=== PATIENT | female | born 1930 | race Caucasian/White ===

== ENCOUNTER 2017-04-05 12:10 | Observation (INO) ==
[2017-04-05] MEDS ORDERED: MORPHINE 2 MG/1 ML SYRINGE ONE (13:52)
[2017-04-05] MEDS ORDERED: ONDANSETRON 4 MG/2 ML VIAL ONE (13:52)
[2017-04-05] MEDS ORDERED: DEXAMETHASONE 10 MG/1 ML VIAL ONE (13:52)
[2017-04-05] MEDS ORDERED: KETOROLAC 30 MG/1 ML VIAL ONE (13:52)
[2017-04-05] MEDS ORDERED: SODIUM CHLORIDE 0.9% 500 ML IV STA (13:56)
[2017-04-05] MEDS ORDERED: KETOROLAC 30 MG/1 ML VIAL IV STA (14:01)
[2017-04-05] MEDS ORDERED: ONDANSETRON 4 MG/2 ML VIAL IV STA (14:01)
[2017-04-05] MEDS ORDERED: DEXAMETHASONE 4 MG/1 ML VIAL IM STA (14:01)
[2017-04-05] MEDS ORDERED: MORPHINE 2 MG/1 ML SYRINGE IV STA (14:01)
[2017-04-05 15:07] LABS: Apearance,Urine Slightly Hazy (Clear); Bacteria,Urine Occasional /HPF (Few); Basophils % 0.2 % (0.0-0.8); Bilirubin,Urine Negative (Negative); Blood, Urine Negative (Negative); Eosinophils # 0.1 10*3/uL (0.0-0.87); Glucose,Urine (UA) Negative (Negative); Hematocrit 41.3 VOL% (35.7-47.0); Hemoglobin 13.8 GM/DL (12.0-16.0); Immature Granulocytes % 0.5 %; Immature Granulocytes Absolute 0.03 #; Ketones,Urine Negative (Negative); Lymphocytes # 1.9 10*3/uL (1.4-4.0); Mean Corpuscular HGB Conc 33.4 GM/DL (32-36); Mean Corpuscular Hemoglobin 31 PG (27-34); Mean Corpuscular Volume 92.8 FL (87-102); Monocytes # 0.5 10*3/uL (0.11-0.8); Monocytes % 8.2 % (1.7-12.7); Mucus,Urine Occasional /LPF (Occasional); Neutrophils # 3.7 10*3/uL (1.4-7.4); Neutrophils % 59.1 % (38.7-73.9); Nitrite,Urine Negative (Negative); Platelet Count 203 T/CUMM (130-400); Protein,Urine Negative; RBC,Urine 3 /HPF (0-4); Red Blood Count 4.45 MC/CUMM (3.8-5.5); Squamous Epithelial Cell,Urine Occasional /HPF (0-10); Urine Color Yellow (Yellow); Urine Specific Gravity 1.006 (1.001-1.035); Urine Urobilinogen < 2.0 EU/DL (0.2-1.0); WBC,Urine 3 /HPF (0-6); White Blood Count 6.2 T/CUMM (4-12)
[2017-04-05] MEDS ORDERED: HYDROmorphone 2 MG/1 ML VIAL ONE (15:32)
[2017-04-05 15:37] LABS: Alanine Aminotransferase 18 U/L (13-56); Albumin 3.5 G/DL (3.4-5.0); Alkaline Phosphatase 126 U/L (45-117); Aspartate Amino Transferase 15 U/L (0-37); Blood Urea Nitrogen 23 MG/DL (7-18); Calcium 8.4 MG/DL (8.5-10.1); Glucose 95 MG/DL (74-106); Potassium 4.1 MMOL/L (3.5-5.1); Sodium 143 MMOL/L (136-145); Total Protein 6.3 G/DL (6.4-8.3)
[2017-04-05] MEDS ORDERED: HYDROmorphone 2 MG/1 ML VIAL IV STA (15:38)
[2017-04-05 16:18] LABS: Sedimentation Rate-Westergren 8 MM/HR (0-30)
[2017-04-05] MEDS ORDERED: MORPHINE 2 MG/1 ML SYRINGE IV PRN (19:18)
[2017-04-05] MEDS ORDERED: ONDANSETRON 4 MG/2 ML VIAL IV PRN (19:18)
[2017-04-05] MEDS ORDERED: SODIUM CHLORIDE 0.9% 1,000 ML IV SCH (19:18)
[2017-04-05] MEDS ORDERED: ACETAMINOPHEN 325 MG TABLET PO PRN (19:18)
[2017-04-05] MEDS: ENOXAPARIN 40 MG/0.4 ML SYRINGE SUBCUT SCH (20:09)
[2017-04-05] MEDS: ACYCLOVIR INJ 1,000 MG in SODIUM CHLORIDE 0.9% 250 ML IV SCH (20:21)
[2017-04-05] MEDS: ROSUVASTATIN 10 MG TABLET PO SCH (23:20)
[2017-04-05] MEDS: SULFAMETHOX/TRIMETHOPRIM 800-160 MG TABLET PO SCH (23:20)
[2017-04-05] MEDS: GABAPENTIN 300 MG CAPSULE PO SCH (23:20)
[2017-04-05] MEDS: DOCUSATE SODIUM 100 MG CAPSULE PO SCH (23:20)
[2017-04-06] MEDS: ACYCLOVIR INJ 1,000 MG in SODIUM CHLORIDE 0.9% 250 ML IV SCH ×3 (04:12→18:36)
[2017-04-06 06:43] LABS: Hematocrit 37.7 VOL% (35.7-47.0); Hemoglobin 12.5 GM/DL (12.0-16.0); Immature Granulocytes % 0.5 %; Immature Granulocytes Absolute 0.04 #; Lymphocytes # 1.1 10*3/uL (1.4-4.0); Lymphocytes % 13.2 % (21.3-54.2); Mean Corpuscular HGB Conc 33.2 GM/DL (32-36); Mean Corpuscular Hemoglobin 31 PG (27-34); Mean Corpuscular Volume 93.8 FL (87-102); Mean Platelet Volume 9.4 FL (9.6-12.0); Monocytes # 0.3 10*3/uL (0.11-0.8); Monocytes % 3.6 % (1.7-12.7); Neutrophils # 6.7 10*3/uL (1.4-7.4); Neutrophils % 82.7 % (38.7-73.9); Platelet Count 210 T/CUMM (130-400); Red Blood Count 4.02 MC/CUMM (3.8-5.5); Red Cell Distribution Width 13.2 % (9.3-17.3); White Blood Count 8.1 T/CUMM (4-12)
[2017-04-06 07:17] LABS: Albumin 3.2 G/DL (3.4-5.0); Bilirubin,Total 0.7 MG/DL (0.2-1.0); Calcium 8.6 MG/DL (8.5-10.1); Magnesium 2.3 MG/DL (1.8-2.4); Osmolality,Calculated 291.1 MOS/KG (273-304); Potassium 4.9 MMOL/L (3.5-5.1); Total Protein 5.5 G/DL (6.4-8.3)
[2017-04-06 08:25] LABS: Apearance,Urine Slightly Hazy (Clear); Bacteria,Urine Occasional /HPF (Few); Bilirubin,Urine Negative (Negative); Blood, Urine Negative (Negative); Glucose,Urine (UA) Negative (Negative); Hyaline Casts,Urine 2 /LPF (0-3); Ketones,Urine Negative (Negative); Mucus,Urine Occasional /LPF (Occasional); Nitrite,Urine Negative (Negative); Protein,Urine Negative; RBC,Urine 5 /HPF (0-4); Squamous Epithelial Cell,Urine Occasional /HPF (0-10); Urine Color Yellow (Yellow); Urine Specific Gravity 1.014 (1.001-1.035); Urine Urobilinogen < 2.0 EU/DL (0.2-1.0); WBC,Urine 2 /HPF (0-6)
[2017-04-06] MEDS: DOCUSATE SODIUM 100 MG CAPSULE PO SCH ×2 (08:57→23:04)
[2017-04-06] MEDS: SULFAMETHOX/TRIMETHOPRIM 800-160 MG TABLET PO SCH ×2 (08:57→23:04)
[2017-04-06] MEDS: PANTOPRAZOLE 40 MG TABLET PO SCH (08:58)
[2017-04-06] MEDS: amLODIPine 5 MG TABLET PO SCH (08:58)
[2017-04-06] MEDS: GABAPENTIN 300 MG CAPSULE PO SCH ×3 (08:58→23:04)
[2017-04-06] MEDS: CYANOCOBALAMIN 500 MCG TABLET PO SCH (08:58)
[2017-04-06] MEDS: CLOPIDOGREL 75 MG TABLET PO SCH (08:58)
[2017-04-06] MEDS: MULTIVITAMIN (CENTRUM) TABLET PO SCH (08:59)
[2017-04-06] MEDS ORDERED: CALAMINE LOTION 180 ML BOTTLE TOP PRN (10:41)
[2017-04-06] MEDS: ENOXAPARIN 40 MG/0.4 ML SYRINGE SUBCUT SCH ×2 (18:11→18:37)
[2017-04-06] MEDS: ROSUVASTATIN 10 MG TABLET PO SCH (23:04)
[2017-04-07] MEDS: ACYCLOVIR INJ 1,000 MG in SODIUM CHLORIDE 0.9% 250 ML IV SCH ×2 (03:04→12:08)
[2017-04-07 06:18] LABS: Basophils % 0.2 % (0.0-0.8); Eosinophils # 0.1 10*3/uL (0.0-0.87); Hematocrit 34.2 VOL% (35.7-47.0); Hemoglobin 11.3 GM/DL (12.0-16.0); Immature Granulocytes % 0.4 %; Immature Granulocytes Absolute 0.03 #; Lymphocytes # 2.4 10*3/uL (1.4-4.0); Lymphocytes % 29.5 % (21.3-54.2); Mean Corpuscular Hemoglobin 31 PG (27-34); Mean Corpuscular Volume 93.4 FL (87-102); Mean Platelet Volume 9.4 FL (9.6-12.0); Monocytes # 0.6 10*3/uL (0.11-0.8); Monocytes % 7.7 % (1.7-12.7); Neutrophils % 61.2 % (38.7-73.9); Platelet Count 166 T/CUMM (130-400); Red Blood Count 3.66 MC/CUMM (3.8-5.5); Red Cell Distribution Width 13.5 % (9.3-17.3); White Blood Count 8.1 T/CUMM (4-12)
[2017-04-07 06:39] LABS: Osmolality,Calculated 288.3 MOS/KG (273-304); Potassium 4.4 MMOL/L (3.5-5.1)
[2017-04-07] MEDS ORDERED: LIDOCAINE 5% PATCH TRANSDERM SCH (09:00)
[2017-04-07] MEDS: CLOPIDOGREL 75 MG TABLET PO SCH (09:33)
[2017-04-07] MEDS: GABAPENTIN 300 MG CAPSULE PO SCH (09:33)
[2017-04-07] MEDS: MULTIVITAMIN (CENTRUM) TABLET PO SCH (09:33)
[2017-04-07] MEDS: SULFAMETHOX/TRIMETHOPRIM 800-160 MG TABLET PO SCH (09:33)
[2017-04-07] MEDS: DOCUSATE SODIUM 100 MG CAPSULE PO SCH (09:33)
[2017-04-07] MEDS: CYANOCOBALAMIN 500 MCG TABLET PO SCH (09:34)
[2017-04-07] MEDS: PANTOPRAZOLE 40 MG TABLET PO SCH (09:34)
[2017-04-07] MEDS: amLODIPine 5 MG TABLET PO SCH (09:34)
[2017-04-07 14:18] VITALS: BP 135/61
== END 2017-04-07 15:50 | disposition home or self-care (01) ==
LOC: EDUNIT# → N.EDINP 12:10 → N.ED 12:10 → N.EDINP 17:43 → N.5E 19:17
PROVIDERS: ADMIT Family Medicine; ATTEND Family Medicine

== ENCOUNTER 2017-06-22 16:53 | Inpatient (IN) ==
[2017-06-22] MEDS ORDERED: ONDANSETRON 4 MG/2 ML VIAL IV STA (17:27)
[2017-06-22] MEDS ORDERED: MORPHINE 2 MG/1 ML SYRINGE IV STA (17:44)
[2017-06-22] MEDS ORDERED: MORPHINE 10 MG/1 ML VIAL ONE (17:46)
[2017-06-22] MEDS ORDERED: ONDANSETRON 4 MG/2 ML VIAL ONE (17:46)
[2017-06-22 18:49] LABS: Basophils % 0.3 % (0.0-0.8); Eosinophils % 0.2 % (0.00-10.9); Hematocrit 39.5 VOL% (35.7-47.0); Hemoglobin 13.4 GM/DL (12.0-16.0); Immature Granulocytes % 0.8 %; Immature Granulocytes Absolute 0.05 #; Lymphocytes # 1.2 10*3/uL (1.4-4.0); Lymphocytes % 19.5 % (21.3-54.2); Mean Corpuscular HGB Conc 33.9 GM/DL (32-36); Mean Corpuscular Hemoglobin 33 PG (27-34); Mean Corpuscular Volume 96.6 FL (87-102); Mean Platelet Volume 9.2 FL (9.6-12.0); Monocytes # 0.3 10*3/uL (0.11-0.8); Monocytes % 5.5 % (1.7-12.7); Neutrophils # 4.6 10*3/uL (1.4-7.4); Neutrophils % 73.7 % (38.7-73.9); Platelet Count 185 T/CUMM (130-400); Red Blood Count 4.09 MC/CUMM (3.8-5.5); Red Cell Distribution Width 15.8 % (9.3-17.3); White Blood Count 6.2 T/CUMM (4-12)
[2017-06-22 18:51] LABS: Calcium 8.9 MG/DL (8.5-10.1); Osmolality,Calculated 276.8 MOS/KG (273-304); Potassium 3.8 MMOL/L (3.5-5.1)
[2017-06-22 18:55] LABS: PT Patient Result 10.6 SECS
[2017-06-22] MEDS ORDERED: MAGNESIUM HYDROXIDE SUSP 30 ML UDCUP PO PRN (19:15)
[2017-06-22] MEDS: MORPHINE 10 MG/1 ML VIAL IV PRN (19:32)
[2017-06-22] MEDS: ONDANSETRON 4 MG/2 ML VIAL IV PRN (23:13)
[2017-06-23] MEDS: MORPHINE 10 MG/1 ML VIAL IV PRN ×3 (04:16→11:40)
[2017-06-23] MEDS: ONDANSETRON 4 MG/2 ML VIAL IV PRN ×3 (04:19→16:01)
[2017-06-23] MEDS ORDERED: TRANEXAMIC ACID 1,000 MG/10 ML VIAL IV ONE (08:28)
[2017-06-23] MEDS ORDERED: ceFAZolin 1,000 MG VIAL ONE (08:58)
[2017-06-23] MEDS ORDERED: amLODIPine 5 MG TABLET PO SCH (09:00)
[2017-06-23] MEDS ORDERED: ceFAZolin 1,000 MG in SYRINGE 1 EACH IV ONE (09:00)
[2017-06-23] MEDS: LACTATED RINGERS 1,000 ML IV SCH ×3 (09:05→16:19)
[2017-06-23] MEDS ORDERED: LACTULOSE 20 GM/30 ML UDCUP PO PRN (10:29)
[2017-06-23] MEDS ORDERED: diphenhydrAMINE CAP 25 MG CAPSULE PO PRN (10:29)
[2017-06-23] MEDS ORDERED: ZALEPLON 5 MG CAPSULE PO PRN (10:29)
[2017-06-23] MEDS ORDERED: MAGNESIUM HYDROXIDE SUSP 30 ML UDCUP PO PRN (10:29)
[2017-06-23] MEDS ORDERED: BISACODYL 10 MG SUPP RECTAL PRN (10:29)
[2017-06-23] MEDS ORDERED: TEMAZEPAM 7.5 MG CAPSULE PO PRN (10:29)
[2017-06-23] MEDS ORDERED: PROPOFOL 200 MG/20 ML VIAL IV ONE (10:55)
[2017-06-23] MEDS ORDERED: PHENYLEPHRINE 10 MG/1 ML VIAL IV ONE (10:56)
[2017-06-23] MEDS ORDERED: fentaNYL 100 MCG/2 ML VIAL ONE (10:56)
[2017-06-23] MEDS ORDERED: ETOMIDATE 40 MG/20 ML VIAL IV ONE (10:56)
[2017-06-23] MEDS ORDERED: ONDANSETRON 4 MG/2 ML VIAL ONE ×2 (10:56→11:22)
[2017-06-23] MEDS ORDERED: DEXAMETHASONE 10 MG/1 ML VIAL ONE (10:56)
[2017-06-23] MEDS ORDERED: DESFLURANE 1 UNIT/15 MINUTE INH ONE (10:56)
[2017-06-23] MEDS ORDERED: GLYCOPYRROLATE 0.4 MG/2 ML VIAL ONE (10:57)
[2017-06-23] MEDS ORDERED: NEOSTIGMINE 10 MG/10 ML VIAL ONE (10:57)
[2017-06-23] MEDS ORDERED: LACTATED RINGERS 1,000 ML IV ONE (10:57)
[2017-06-23] MEDS ORDERED: ROCURONIUM 100 MG/10 ML VIAL IV ONE (10:57)
[2017-06-23] MEDS ORDERED: PHENYLEPHRINE 1 MG/10 ML SYRINGE IV ONE (10:58)
[2017-06-23] MEDS ORDERED: HYDROmorphone 2 MG/1 ML VIAL IV PRN (11:32)
[2017-06-23] MEDS ORDERED: ONDANSETRON 4 MG/2 ML VIAL IV PRN (11:32)
[2017-06-23] MEDS: MORPHINE 2 MG/1 ML SYRINGE IV PRN (16:01)
[2017-06-23] MEDS: ROSUVASTATIN 10 MG TABLET PO SCH (16:09)
[2017-06-23] MEDS: GABAPENTIN 600 MG TABLET PO SCH ×2 (16:10→21:28)
[2017-06-23] MEDS: MULTIVITAMIN (CENTRUM) TABLET PO SCH (16:18)
[2017-06-23 17:48] LABS: Apearance,Urine CLEAR (Clear); Bilirubin,Urine Negative (Negative); Blood, Urine Moderate mg/dL (Negative); Glucose,Urine (UA) 50 mg/dL (Negative); Ketones,Urine Negative (Negative); Mucus,Urine Occasional /LPF (Occasional); Nitrite,Urine Negative (Negative); Protein,Urine Negative; RBC,Urine <1 /HPF (0-4); Urine Color Straw (Yellow); Urine Specific Gravity 1.003 (1.001-1.035); Urine Urobilinogen < 2.0 EU/DL (0.2-1.0); WBC,Urine 3 /HPF (0-6)
[2017-06-23] MEDS: ceFAZolin 1,000 MG in SYRINGE 1 EACH IV SCH (18:47)
[2017-06-23] MEDS: valACYclovir 500 MG TABLET PO SCH (21:28)
[2017-06-23] MEDS: DOCUSATE SODIUM 100 MG CAPSULE PO SCH (21:30)
[2017-06-24] MEDS: ceFAZolin 1,000 MG in SYRINGE 1 EACH IV SCH ×3 (01:59→17:43)
[2017-06-24] MEDS: FONDAPARINUX 2.5 MG/0.5 ML SYRINGE SUBCUT SCH (05:32)
[2017-06-24 05:43] LABS: Basophils % 0.1 % (0.0-0.8); Hematocrit 33.4 VOL% (35.7-47.0); Hemoglobin 11.3 GM/DL (12.0-16.0); Immature Granulocytes % 0.4 %; Immature Granulocytes Absolute 0.04 #; Lymphocytes # 1.2 10*3/uL (1.4-4.0); Lymphocytes % 11.7 % (21.3-54.2); Mean Corpuscular HGB Conc 33.8 GM/DL (32-36); Mean Corpuscular Hemoglobin 33 PG (27-34); Mean Corpuscular Volume 97.1 FL (87-102); Mean Platelet Volume 9.3 FL (9.6-12.0); Monocytes # 0.7 10*3/uL (0.11-0.8); Monocytes % 7.2 % (1.7-12.7); Neutrophils # 7.9 10*3/uL (1.4-7.4); Neutrophils % 80.6 % (38.7-73.9); Platelet Count 178 T/CUMM (130-400); Red Blood Count 3.44 MC/CUMM (3.8-5.5); Red Cell Distribution Width 15.9 % (9.3-17.3); White Blood Count 9.8 T/CUMM (4-12)
[2017-06-24 06:37] LABS: Albumin 3.2 G/DL (3.4-5.0); Bilirubin,Total 0.7 MG/DL (0.2-1.0); Calcium 8.6 MG/DL (8.5-10.1); Ferritin 117.9 ng/ml (8-252); Osmolality,Calculated 281.4 MOS/KG (273-304); Potassium 4.2 MMOL/L (3.5-5.1); Thyroid Stimulating Hormone 0.555 uIU/ml (0.358-3.74); Total Protein 5.7 G/DL (6.4-8.3)
[2017-06-24] MEDS: ONDANSETRON 4 MG/2 ML VIAL IV PRN (08:45)
[2017-06-24] MEDS: MORPHINE 2 MG/1 ML SYRINGE IV PRN (08:47)
[2017-06-24] MEDS: CYANOCOBALAMIN 500 MCG TABLET PO SCH (08:55)
[2017-06-24] MEDS: ROSUVASTATIN 10 MG TABLET PO SCH (08:55)
[2017-06-24] MEDS: amLODIPine 10 MG TABLET PO SCH (08:56)
[2017-06-24] MEDS: DOCUSATE SODIUM 100 MG CAPSULE PO SCH ×2 (08:57→21:16)
[2017-06-24] MEDS: MULTIVITAMIN (CENTRUM) TABLET PO SCH (08:59)
[2017-06-24] MEDS: CLOPIDOGREL 75 MG TABLET PO SCH (09:00)
[2017-06-24] MEDS: GABAPENTIN 600 MG TABLET PO SCH ×2 (09:00→21:16)
[2017-06-24] MEDS ORDERED: Flaxseed Oil 1,000 MG PO SCH (09:00)
[2017-06-24] MEDS: valACYclovir 500 MG TABLET PO SCH ×2 (09:02→21:15)
[2017-06-24] MEDS ORDERED: ACETAMINOPHEN 325 MG TABLET PO PRN (10:36)
[2017-06-24] MEDS ORDERED: ZINC OXIDE PASTE 113 GM TUBE TOP PRN (15:20)
[2017-06-25] MEDS: ceFAZolin 1,000 MG in SYRINGE 1 EACH IV SCH ×3 (03:28→16:33)
[2017-06-25 05:24] LABS: Basophils % 0.4 % (0.0-0.8); Eosinophils % 0.5 % (0.00-10.9); Hematocrit 26.6 VOL% (35.7-47.0); Hemoglobin 9.1 GM/DL (12.0-16.0); Immature Granulocytes % 0.3 %; Immature Granulocytes Absolute 0.02 #; Lymphocytes # 2.2 10*3/uL (1.4-4.0); Lymphocytes % 27.8 % (21.3-54.2); Mean Corpuscular HGB Conc 34.2 GM/DL (32-36); Mean Corpuscular Hemoglobin 33 PG (27-34); Mean Platelet Volume 9.4 FL (9.6-12.0); Monocytes % 12.3 % (1.7-12.7); Neutrophils # 4.6 10*3/uL (1.4-7.4); Neutrophils % 58.7 % (38.7-73.9); Platelet Count 146 T/CUMM (130-400); Red Blood Count 2.77 MC/CUMM (3.8-5.5); Red Cell Distribution Width 16.7 % (9.3-17.3); White Blood Count 7.8 T/CUMM (4-12)
[2017-06-25] MEDS: FONDAPARINUX 2.5 MG/0.5 ML SYRINGE SUBCUT SCH (05:45)
[2017-06-25 05:55] LABS: Calcium 8.2 MG/DL (8.5-10.1)
[2017-06-25 06:07] LABS: Band Neutrophils 3 % (0-10); Eosinophils 2 % (0-10); Lymphocytes 22 % (20-55); Segmented Neutrophils 67 % (50-85); Total Cells Counted 100
[2017-06-25 06:08] LABS: Macrocytosis 2+
[2017-06-25 06:10] LABS: Platelet Estimate Normal
[2017-06-25] MEDS: LACTATED RINGERS 1,000 ML IV SCH (06:59)
[2017-06-25] MEDS: GABAPENTIN 600 MG TABLET PO SCH ×2 (08:38→20:19)
[2017-06-25] MEDS: valACYclovir 500 MG TABLET PO SCH ×2 (08:38→20:19)
[2017-06-25] MEDS: MULTIVITAMIN (CENTRUM) TABLET PO SCH (08:38)
[2017-06-25] MEDS: MORPHINE 2 MG/1 ML SYRINGE IV PRN (08:38)
[2017-06-25] MEDS: ROSUVASTATIN 10 MG TABLET PO SCH (08:38)
[2017-06-25] MEDS: CYANOCOBALAMIN 500 MCG TABLET PO SCH (08:39)
[2017-06-25] MEDS: DOCUSATE SODIUM 100 MG CAPSULE PO SCH ×2 (08:39→20:19)
[2017-06-25] MEDS: amLODIPine 10 MG TABLET PO SCH (08:39)
[2017-06-25] MEDS: CLOPIDOGREL 75 MG TABLET PO SCH (08:39)
[2017-06-25] MEDS ORDERED: MORPHINE 2 MG/1 ML SYRINGE IV PRN ×2 (08:45→09:00)
[2017-06-25] MEDS: ONDANSETRON 4 MG/2 ML VIAL IV PRN (10:12)
[2017-06-25] MEDS: NYSTATIN/TRIAMCINOLONE CREAM 15 GM TUBE TOP SCH (20:21)
[2017-06-26] MEDS: ceFAZolin 1,000 MG in SYRINGE 1 EACH IV SCH ×3 (00:51→16:48)
[2017-06-26 04:04] LABS: Basophils % 0.3 % (0.0-0.8); Eosinophils # 0.1 10*3/uL (0.0-0.87); Eosinophils % 1.4 % (0.00-10.9); Hematocrit 27.7 VOL% (35.7-47.0); Hemoglobin 9.4 GM/DL (12.0-16.0); Immature Granulocytes % 0.4 %; Immature Granulocytes Absolute 0.03 #; Lymphocytes # 1.7 10*3/uL (1.4-4.0); Lymphocytes % 23.6 % (21.3-54.2); Mean Corpuscular HGB Conc 33.9 GM/DL (32-36); Mean Corpuscular Hemoglobin 33 PG (27-34); Mean Corpuscular Volume 96.2 FL (87-102); Mean Platelet Volume 9.1 FL (9.6-12.0); Monocytes # 0.8 10*3/uL (0.11-0.8); Monocytes % 10.4 % (1.7-12.7); Neutrophils # 4.7 10*3/uL (1.4-7.4); Neutrophils % 63.9 % (38.7-73.9); Platelet Count 167 T/CUMM (130-400); Red Blood Count 2.88 MC/CUMM (3.8-5.5); Red Cell Distribution Width 16.8 % (9.3-17.3); White Blood Count 7.3 T/CUMM (4-12)
[2017-06-26 04:31] LABS: Calcium 7.9 MG/DL (8.5-10.1); Osmolality,Calculated 279.5 MOS/KG (273-304); Potassium 4.2 MMOL/L (3.5-5.1)
[2017-06-26] MEDS: DOCUSATE SODIUM 100 MG CAPSULE PO SCH ×2 (09:06→20:49)
[2017-06-26] MEDS: FONDAPARINUX 2.5 MG/0.5 ML SYRINGE SUBCUT SCH (09:06)
[2017-06-26] MEDS: valACYclovir 500 MG TABLET PO SCH ×2 (09:06→20:49)
[2017-06-26] MEDS: MULTIVITAMIN (CENTRUM) TABLET PO SCH (09:06)
[2017-06-26] MEDS: CYANOCOBALAMIN 500 MCG TABLET PO SCH (09:06)
[2017-06-26] MEDS: ROSUVASTATIN 10 MG TABLET PO SCH (09:06)
[2017-06-26] MEDS: amLODIPine 10 MG TABLET PO SCH (09:07)
[2017-06-26] MEDS: GABAPENTIN 600 MG TABLET PO SCH ×2 (09:07→20:49)
[2017-06-26] MEDS: CLOPIDOGREL 75 MG TABLET PO SCH (09:07)
[2017-06-26] MEDS: NYSTATIN/TRIAMCINOLONE CREAM 15 GM TUBE TOP SCH ×2 (09:07→20:53)
[2017-06-26] MEDS: MAGNESIUM HYDROXIDE SUSP 30 ML UDCUP PO SCH (18:25)
[2017-06-27] MEDS: ceFAZolin 1,000 MG in SYRINGE 1 EACH IV SCH ×4 (00:24→09:53)
[2017-06-27] MEDS: MAGNESIUM HYDROXIDE SUSP 30 ML UDCUP PO SCH ×2 (03:24→12:08)
[2017-06-27] MEDS: CYANOCOBALAMIN 500 MCG TABLET PO SCH (08:01)
[2017-06-27] MEDS: MULTIVITAMIN (CENTRUM) TABLET PO SCH (08:01)
[2017-06-27] MEDS: ROSUVASTATIN 10 MG TABLET PO SCH (08:01)
[2017-06-27] MEDS: DOCUSATE SODIUM 100 MG CAPSULE PO SCH (08:01)
[2017-06-27] MEDS: CLOPIDOGREL 75 MG TABLET PO SCH (08:02)
[2017-06-27] MEDS: FONDAPARINUX 2.5 MG/0.5 ML SYRINGE SUBCUT SCH (08:02)
[2017-06-27] MEDS: amLODIPine 10 MG TABLET PO SCH (08:02)
[2017-06-27] MEDS: valACYclovir 500 MG TABLET PO SCH (08:02)
[2017-06-27] MEDS: GABAPENTIN 600 MG TABLET PO SCH (08:02)
[2017-06-27] MEDS: NYSTATIN/TRIAMCINOLONE CREAM 15 GM TUBE TOP SCH (08:03)
[2017-06-27 13:32] VITALS: BP 161/55
[2017-06-27] MEDS ORDERED: ESTRADIOL 0.01% VAG CREAM 42.5 GM TUBE VAG SCH (21:00)
== END 2017-06-27 15:50 | DRG 470 ==
LOC: EDBD → EDUNIT# → N.ED 16:53 → N.EDINP 17:32 → N.3E 19:01
PROVIDERS: ADMIT Family Medicine; ATTEND Family Medicine